=== PATIENT | male | born 1995 | race Caucasian/White ===

== ENCOUNTER 2018-03-14 15:37 | Observation (INO) ==
[2018-03-14] MEDS: NS 1000 ML 1,000 ML IV SCH (16:43)
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
[2018-03-14 17:07] LABS: BASOPHILS # (AUTO) 0.1 X10^3/uL (0.0-0.1); BASOPHILS % (AUTO) 0.9 % (0.2-1.0); EOSINOPHILS # (AUTO) 0.2 x10^3/uL (0.0-0.2); EOSINOPHILS % (AUTO) 2.3 % (0.9-2.9); HEMATOCRIT 40.5 % (42.0-54.0); HEMOGLOBIN 13.4 g/dL (13.5-18.0); LYMPHOCYTES % (AUTO) 37.3 % (21.0-51.0); MEAN CORPUSCULAR HEMOGLOBIN 28.4 pg (27.0-34.0); MEAN CORPUSCULAR HGB CONC 32.9 g/dL (33.0-35.0); MEAN CORPUSCULAR VOLUME 86.3 fL (80.0-100.0); MEAN PLATELET VOLUME 7.3 fL (7.4-11.0); MONOCYTES # (AUTO) 0.5 x10^3/uL (0.3-0.8); MONOCYTES % (AUTO) 6.6 % (0.0-13.0); NEUTROPHILS # (AUTO) 4.3 x10^3/uL (2.2-4.8); NEUTROPHILS % (AUTO) 52.9 % (42.0-75.0); PLATELET COUNT 349 X10^3/uL (150.0-450.0); RED CELL DISTRIBUTION WIDTH 12.9 % (11.6-16.5)
[2018-03-14 17:19] LABS: ALANINE AMINOTRANSFERASE 17 Units/L (12-78); ALBUMIN 3.3 g/dL (3.4-5.0); ALKALINE PHOSPHATASE 96 Units/L (46-116); ASPARTATE AMINO TRANSFERASE 19 Units/L (15-37); BLOOD UREA NITROGEN 9 mg/dL (7-18); CALCIUM 8.6 mg/dL (8.5-10.1); CARBON DIOXIDE 28.5 mmol/L (21-32); CHLORIDE 105 mmol/L (98-107); COR CA(FOR HYPOALB) 9.2 mg/dL (8.5-10.1); COR NA(FOR HYPERGLY) 142 mmol/L (136-145); CREATININE 0.78 mg/dL (0.70-1.30); SODIUM 142 mmol/L (136-145); TOTAL PROTEIN 7.7 g/dL (6.4-8.2); eGFR NON BLACK RACES > 60 (>60)
[2018-03-14 17:28] VITALS: BMI 46.5
[2018-03-14] MEDS ORDERED: PERCOCET TAB 5/325 MG PO PRN (20:16)
[2018-03-14] MEDS ORDERED: NS IV SCH (22:00)
[2018-03-14] MEDS ORDERED: PHARMACY CONSULT - VANCOMYCIN XX SCH (22:00)
[2018-03-14] MEDS ORDERED: VANCOMYCIN HCL IV SCH (22:00)
[2018-03-14] MEDS: ZOSYN VIAL 3.375 GRAMS IV SCH (22:09)
[2018-03-15] MEDS: NS 1000 ML 1,000 ML IV SCH ×2 (05:55→21:51)
[2018-03-15] MEDS: ZOSYN VIAL 3.375 GRAMS IV SCH ×3 (05:56→23:45)
[2018-03-15 06:50] LABS: BASOPHILS # (AUTO) 0.1 X10^3/uL (0.0-0.1); BASOPHILS % (AUTO) 0.9 % (0.2-1.0); EOSINOPHILS # (AUTO) 0.3 x10^3/uL (0.0-0.2); EOSINOPHILS % (AUTO) 3.7 % (0.9-2.9); HEMATOCRIT 37.2 % (42.0-54.0); HEMOGLOBIN 12.7 g/dL (13.5-18.0); LYMPHOCYTES # (AUTO) 3.3 X10^3/uL (1.3-2.9); LYMPHOCYTES % (AUTO) 44.6 % (21.0-51.0); MEAN CORPUSCULAR HGB CONC 34.1 g/dL (33.0-35.0); MEAN CORPUSCULAR VOLUME 85.1 fL (80.0-100.0); MEAN PLATELET VOLUME 7.2 fL (7.4-11.0); MONOCYTES # (AUTO) 0.6 x10^3/uL (0.3-0.8); MONOCYTES % (AUTO) 8.5 % (0.0-13.0); NEUTROPHILS # (AUTO) 3.2 x10^3/uL (2.2-4.8); NEUTROPHILS % (AUTO) 42.3 % (42.0-75.0); PLATELET COUNT 308 X10^3/uL (150.0-450.0); RED BLOOD COUNT 4.37 X10^6/uL (4.7-6.0); RED CELL DISTRIBUTION WIDTH 12.8 % (11.6-16.5); WHITE BLOOD COUNT 7.5 X10^3/uL (3.6-10.0)
[2018-03-15 07:17] LABS: ALANINE AMINOTRANSFERASE 19 Units/L (12-78); ALKALINE PHOSPHATASE 87 Units/L (46-116); ASPARTATE AMINO TRANSFERASE 18 Units/L (15-37); BLOOD UREA NITROGEN 12 mg/dL (7-18); CALCIUM 8.4 mg/dL (8.5-10.1); CARBON DIOXIDE 25.2 mmol/L (21-32); CHLORIDE 106 mmol/L (98-107); COR CA(FOR HYPOALB) 9.2 mg/dL (8.5-10.1); CREATININE 0.74 mg/dL (0.70-1.30); SODIUM 140 mmol/L (136-145); eGFR NON BLACK RACES > 60 (>60)
[2018-03-15] MEDS: VANCOMYCIN HCL IV SCH ×2 (09:55→21:50)
[2018-03-15] MEDS: NS IV SCH ×2 (09:55→21:50)
--- NOTE | 2018-03-15 10:22 | DR.UPDATE ---
H&P Update History and Physical Update: WAS SEEN IN THE OFFICE BY URSZULA MARQUEZ NP YESTERDAY. A H&P WAS COMPLETED PRIOR TO ADMISSION. PATIENT HAS BEEN SEEN AND EXAMINED WITH NO CHANGES NOTED TO H&P. Changes noted: NO Yes with the following:
[2018-03-15] MEDS: GENTAMICIN TOPICAL OINT TOP SCH ×3 (10:27→21:50)
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
[2018-03-15] MEDS ORDERED: NS 100 ML IV + SPIKE MINIBAG* 100 ML IV ONE (14:11)
[2018-03-16 06:23] LABS: BASOPHILS # (AUTO) 0.1 X10^3/uL (0.0-0.1); BASOPHILS % (AUTO) 0.7 % (0.2-1.0); EOSINOPHILS # (AUTO) 0.2 x10^3/uL (0.0-0.2); EOSINOPHILS % (AUTO) 3.3 % (0.9-2.9); HEMATOCRIT 38.6 % (42.0-54.0); HEMOGLOBIN 12.9 g/dL (13.5-18.0); LYMPHOCYTES # (AUTO) 2.2 X10^3/uL (1.3-2.9); LYMPHOCYTES % (AUTO) 28.3 % (21.0-51.0); MEAN CORPUSCULAR HEMOGLOBIN 28.6 pg (27.0-34.0); MEAN CORPUSCULAR HGB CONC 33.4 g/dL (33.0-35.0); MEAN CORPUSCULAR VOLUME 85.8 fL (80.0-100.0); MONOCYTES # (AUTO) 0.8 x10^3/uL (0.3-0.8); MONOCYTES % (AUTO) 10.6 % (0.0-13.0); NEUTROPHILS # (AUTO) 4.3 x10^3/uL (2.2-4.8); NEUTROPHILS % (AUTO) 57.1 % (42.0-75.0); PLATELET COUNT 317 X10^3/uL (150.0-450.0); RED CELL DISTRIBUTION WIDTH 13.2 % (11.6-16.5); WHITE BLOOD COUNT 7.6 X10^3/uL (3.6-10.0)
[2018-03-16 06:35] LABS: ALANINE AMINOTRANSFERASE 17 Units/L (12-78); ALBUMIN 3.1 g/dL (3.4-5.0); ALKALINE PHOSPHATASE 89 Units/L (46-116); ASPARTATE AMINO TRANSFERASE 25 Units/L (15-37); BLOOD UREA NITROGEN 13 mg/dL (7-18); CALCIUM 8.3 mg/dL (8.5-10.1); CARBON DIOXIDE 26.2 mmol/L (21-32); CHLORIDE 106 mmol/L (98-107); CREATININE 0.85 mg/dL (0.70-1.30); SODIUM 139 mmol/L (136-145); TOTAL PROTEIN 7.1 g/dL (6.4-8.2); eGFR NON BLACK RACES > 60 (>60)
[2018-03-16] MEDS: ZOSYN VIAL 3.375 GRAMS IV SCH (06:45)
[2018-03-16] MEDS: VANCOMYCIN HCL IV SCH (08:32)
[2018-03-16] MEDS: GENTAMICIN TOPICAL OINT TOP SCH (08:32)
[2018-03-16] MEDS: NS IV SCH (08:32)
[2018-03-16 10:07] VITALS: BP 133/61
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
== END 2018-03-16 12:00 | disposition home or self-care (01) ==
LOC: OBS
PROVIDERS: ADMIT Internal Medicine; ATTEND Internal Medicine
DX: R52 Pain, unspecified; L03.115 Cellulitis of right lower limb; M79.671 Pain in right foot; R60.0 Localized edema
CPT/HCPCS: 36415; 73630; 80053; 85025; 87040; 87070; 87075; 87205; 97161; A4216; A4222; G0378; J2543; J3370; J7030; J7040; J7050

== ENCOUNTER 2023-05-31 08:18 | Observation (INO) ==
[~2023-05-31 08:18] MED LIST: NS IRRIGATION* 1,000 ML ONE
[2023-05-31 08:33] VITALS: BMI 48.1
--- NOTE | 2023-05-31 09:11 | DR.GENAD ---
HPI Time Seen Time Seen by Provider: 05/31/23 09:10 PCP Primary Care Physician: LISA Complaint/Symptoms Chief Complaint:: Seen in ED day secondary Gallstones, received RX but not filled because he already had them and has not gotten any better. 2 days of N&V, pain LUQ and between shoulder blades. Patient states he had Oxycodone from hsi mother x 2 yesterday Self Treatment fo Chief Complaint: Zofran, Mothers Oxycodone x 2 yesterday COVID-19 Coronavirus risk:travel/contact w/high risk person: No Has patient experienced Coronavirus symptoms: No Source History Provided: Patient Mode of Arrival Mode of Arrival: Ambulatory Timing Onset of Chief Complaint: 05/22/23 PMH PMH Past Medical History: Yes Past Medical History: Anxiety, GERD and Headaches Past Surgical History: Yes Surgical History: Tonsillectomy Family History History of Family Medical Conditions: Yes Family Medical History: Hypertension Social History Does any household member use tobacco: No Alcohol Use: None Do you use any 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) Lives With: Mom Lives Where: Home Travel Risk Coronavirus risk:travel/contact w/high risk person: No Has patient experienced Coronavirus symptoms: No Infectious screening In the last 2 months have you had wt loss of >10#?: NO Have you had fever, night sweats or hemotysis?: No Have you traveled outside the country in the last 6 months?: No Isolation: Standard PE Vital Signs Vitals: Vital Signs Temperature 98.3 F Pulse Rate 80 Respiratory Rate 20 Respiratory Rate 16 Blood Pressure 150/70 O2 Sat by Pulse Oximetry 95 ROR Labs Reviewed 05/31/23 09:35 05/31/23 09:35 Laboratory: WBC 10.0 X10^3/uL (3.6-10.0) 05/31/23 09:35 RBC 5.11 X10^6/uL (4.7-6.0) 05/31/23 09:35 Hgb 14.5 g/dL (13.5-18.0) 05/31/23 09:35 Hct 42.9 % (42.0-54.0) 05/31/23 09:35 MCV 83.9 fL (80.0-100.0) 05/31/23 09:35 MCH 28.4 pg (27.0-34.0) 05/31/23 09:35 MCHC 33.9 g/dL (33.0-35.0) 05/31/23 09:35 RDW 14.2 % (11.6-16.5) 05/31/23 09:35 Plt Count 270 X10^3/uL (150.0-450.0) 05/31/23 09:35 MPV 7.5 fL (7.4-11.0) 05/31/23 09:35 Neut % (Auto) 69.3 % (42.0-75.0) 05/31/23 09:35 Lymph % (Auto) 19.7 % (21.0-51.0) L 05/31/23 09:35 [place] % (Auto) 10.3 % (0.0-13.0) 05/31/23 09:35 Eos % (Auto) 0.3 % (0.9-2.9) L 05/31/23 09:35 Baso % (Auto) 0.4 % (0.2-1.0) 05/31/23 09:35 Neut # (Auto) 6.9 x10^3/uL (2.2-4.8) H 05/31/23 09:35 Lymph # (Auto) 2.0 X10^3/uL (1.3-2.9) 05/31/23 09:35 [place] # (Auto) 1.0 x10^3/uL (0.3-0.8) H 05/31/23 09:35 Eos # (Auto) 0.0 x10^3/uL (0.0-0.2) 05/31/23 09:35 Baso # (Auto) 0.0 X10^3/uL (0.0-0.1) 05/31/23 09:35 Absolute Nucleated RBC 0.0 /100WBC 05/31/23 09:35 Opioid Opioid Risk Tool Age (Renaldo box if 16-45): Yes History of Preadolescent Sexual Abuse: No Total: 1 Total Score Risk Category: Low Risk Copyright: Darrell ABRAMS predicting aberrant behaviors Discharge Plan Discharge Plan Patient Disposition: 09 ADMITTED INPATIENT Condition: Stable Prescriptions: No Action tramadol 50 mg tablet 50 mg PO Q8H MDD 3 PRNQty: 10 0RF ondansetron 4 mg tablet,disintegrating 4 mg PO Q8H PRNQty: 20 0RF Health Concerns: Post Hospitalization: new medications and changes needed to prevent readmission or further decline. Pt educated and given instructions on all concerns. Plan of Treatment: Continue with present treatment and follow up plan. Pt is to keep follow up appointment as instructed and take medications as ordered. Orders to Discharge Patient Discharge Orders: Transfer (Routine); Ordered 05/31/23 Ordered By: MARISA MILLAN Follow ups/Referrals Follow ups/Referrals: ROGERIO HEARD [Primary Care Provider] - 3 days
[2023-05-31 09:51] LABS: BASOPHILS % (AUTO) 0.4 % (0.2-1.0); EOSINOPHILS % (AUTO) 0.3 % (0.9-2.9); HEMATOCRIT 42.9 % (42.0-54.0); HEMOGLOBIN 14.5 g/dL (13.5-18.0); LYMPHOCYTES % (AUTO) 19.7 % (21.0-51.0); MEAN CORPUSCULAR HEMOGLOBIN 28.4 pg (27.0-34.0); MEAN CORPUSCULAR HGB CONC 33.9 g/dL (33.0-35.0); MEAN CORPUSCULAR VOLUME 83.9 fL (80.0-100.0); MEAN PLATELET VOLUME 7.5 fL (7.4-11.0); MONOCYTES % (AUTO) 10.3 % (0.0-13.0); NEUTROPHILS # (AUTO) 6.9 x10^3/uL (2.2-4.8); NEUTROPHILS % (AUTO) 69.3 % (42.0-75.0); PLATELET COUNT 270 X10^3/uL (150.0-450.0); RED BLOOD COUNT 5.11 X10^6/uL (4.7-6.0); RED CELL DISTRIBUTION WIDTH 14.2 % (11.6-16.5)
--- NOTE | 2023-05-31 10:21 | US ---
HISTORYReason For StudySTUDYGALL BLADDERCOMPARISONNoneTECHNIQUEMultiple sterling scale and color flow Doppler images of the right upper quadrant were obtained.FINDINGSThe liver is normal in size but demonstrates increased echotexture most compatible fatty infiltration. No focal intraparenchymal mass or intrahepatic biliary ductal dilatation can be observed. The gallbladder demonstrates multiple shadowing stones. The common bile duct is unremarkable measuring 3 mm in width. No pericholecystic fluid or gallbladder wall thickening can be observed .The right kidney appears normal in size without focal parenchymal mass or nephrolithiasis. The right kidney measurers 12 cm in length. No hydronephrosis or perirenal fluid can be observed. Pancreas is largely obscured by overlying bowel gas.IMPRESSIONCholelithiasis.Probable fatty liver.Electronically signed by: MERT CERVANTES (May 31, 2023 10:21:06)
[2023-05-31] MEDS ORDERED: DEMEROL INJ IVP ONE (10:44)
[2023-05-31] MEDS ORDERED: ZOFRAN INJ 4 MG VIAL IVP ONE (10:44)
[2023-05-31] MEDS ORDERED: ZOFRAN INJ 4 MG VIAL ONE (10:45)
[2023-05-31] MEDS ORDERED: DEMEROL INJ ONE (10:45)
[2023-05-31] MEDS ORDERED: ZOSYN VIAL 3.375 GRAMS IV ONE (10:59)
[2023-05-31] MEDS ORDERED: NS 100 ML IV 100 ML ONE (11:00)
[2023-05-31] MEDS ORDERED: D5 1/2 NS 1,000 ML 1,000 ML IV ONE (11:00)
[2023-05-31] MEDS ORDERED: D5 1/2 NS 1,000 ML 1,000 ML IV STA (11:08)
[2023-05-31] MEDS ORDERED: ZOSYN VIAL 3.375 GRAMS 3.375 G in NS 100 ML IV 100 ML IV STA (11:08)
[2023-05-31 11:13] LABS: ALANINE AMINOTRANSFERASE 15 Units/L (12-78); ALBUMIN 4.1 g/dL (3.4-5.0); ALKALINE PHOSPHATASE 103 Units/L (46-116); ASPARTATE AMINO TRANSFERASE 19 Units/L (15-37); BLOOD UREA NITROGEN 8 mg/dL (7-18); CALCIUM 8.4 mg/dL (8.5-10.1); CARBON DIOXIDE 27.7 mmol/L (21-32); CHLORIDE 102 mmol/L (98-107); GLUCOSE 101 mg/dL (65-99); POTASSIUM 3.7 mmol/L (3.5-5.1); SODIUM 141 mmol/L (136-145); TOTAL PROTEIN 8.5 g/dL (6.4-8.2); eGFR NON BLACK RACES > 60 (>60)
--- NOTE | 2023-05-31 11:17 | EKG ---
Test Reason : SURGICAL CLEARANCE Blood Pressure : */* mmHG Vent. Rate : 67 BPM Atrial Rate : 67 BPM P-R Int : 146 ms QRS Dur : 94 ms QT Int : 414 ms P-R-T Axes : 29 38 24 degrees QTc Int : 437 ms Normal sinus rhythm with sinus arrhythmia Normal ECG No previous ECGs available Confirmed by Facundo Oswald ([id number]) on 06/01/2023 8:04:11 AM Referred By: Confirmed By: Facundo Oswald
[2023-05-31] MEDS ORDERED: KETAMINE 50 MG/5 ML-NACL SYRNG ONE (12:00)
[2023-05-31] MEDS ORDERED: ZOSYN VIAL 2.25 GRAMS 2.25 G in NS 100 ML IV 100 ML IV SCH (12:00)
[2023-05-31] MEDS ORDERED: ZOFRAN INJ 4 MG VIAL IVP PRN ×3 (12:00→16:01)
[2023-05-31] MEDS ORDERED: XYLOCAINE 2 % (PLAIN) ONE (12:00)
[2023-05-31] MEDS ORDERED: ULTANE GAS IN ONE (12:00)
[2023-05-31 12:02] LABS: AMYLASE 32 Units/L (25-115); LIPASE 68 Units/L (73-393)
[2023-05-31] MEDS ORDERED: BENADRYL INJ 50 MG VIAL IVP PRN (15:48)
[2023-05-31] MEDS ORDERED: DILAUDID INJ IVP PRN (15:48)
[2023-05-31] MEDS ORDERED: BARHEMSYS INJ IVP PRN (15:48)
[2023-05-31] MEDS: D5 1/2 NS 1,000 ML 1,000 ML IV SCH (17:12)
[2023-05-31] MEDS: ZOSYN VIAL 3.375 GRAMS 3.375 G in NS 100 ML IV 100 ML IV SCH ×2 (17:13→21:43)
[2023-05-31] MEDS: DILAUDID INJ IVP PRN (20:55)
[2023-06-01] MEDS: DILAUDID INJ IVP PRN ×2 (02:26→09:35)
[2023-06-01 04:08] VITALS: RESP 20
[2023-06-01] MEDS: D5 1/2 NS 1,000 ML 1,000 ML IV SCH ×2 (05:15→09:46)
[2023-06-01] MEDS: ZOSYN VIAL 3.375 GRAMS 3.375 G in NS 100 ML IV 100 ML IV SCH (05:15)
[2023-06-01 06:36] LABS: BASOPHILS % (AUTO) 0.1 % (0.2-1.0); HEMATOCRIT 38.1 % (42.0-54.0); HEMOGLOBIN 13.1 g/dL (13.5-18.0); LYMPHOCYTES # (AUTO) 2.1 X10^3/uL (1.3-2.9); LYMPHOCYTES % (AUTO) 21.9 % (21.0-51.0); MEAN CORPUSCULAR HEMOGLOBIN 28.9 pg (27.0-34.0); MEAN CORPUSCULAR HGB CONC 34.5 g/dL (33.0-35.0); MEAN CORPUSCULAR VOLUME 83.8 fL (80.0-100.0); MONOCYTES # (AUTO) 1.2 x10^3/uL (0.3-0.8); MONOCYTES % (AUTO) 12.3 % (0.0-13.0); NEUTROPHILS # (AUTO) 6.2 x10^3/uL (2.2-4.8); NEUTROPHILS % (AUTO) 65.7 % (42.0-75.0); PLATELET COUNT 248 X10^3/uL (150.0-450.0); RED BLOOD COUNT 4.54 X10^6/uL (4.7-6.0); RED CELL DISTRIBUTION WIDTH 14.2 % (11.6-16.5); WHITE BLOOD COUNT 9.5 X10^3/uL (3.6-10.0)
[2023-06-01 06:51] LABS: ALANINE AMINOTRANSFERASE 67 Units/L (12-78); ALBUMIN 3.4 g/dL (3.4-5.0); ALKALINE PHOSPHATASE 104 Units/L (46-116); ASPARTATE AMINO TRANSFERASE 111 Units/L (15-37); BLOOD UREA NITROGEN 7 mg/dL (7-18); CALCIUM 8.3 mg/dL (8.5-10.1); CARBON DIOXIDE 31.6 mmol/L (21-32); CHLORIDE 101 mmol/L (98-107); CREATININE 0.84 mg/dL (0.70-1.30); GLUCOSE 110 mg/dL (65-99); POTASSIUM 4.2 mmol/L (3.5-5.1); SODIUM 139 mmol/L (136-145); TOTAL PROTEIN 7.6 g/dL (6.4-8.2); eGFR NON BLACK RACES > 60 (>60)
[2023-06-01 10:10] VITALS: BP 113/56; PULSE 79; TEMP 98.3; O2SAT 97
== END 2023-06-01 13:15 | disposition home or self-care (01) ==
LOC: ER 08:18 → MED/SURG 08:18 → ER 11:27
PROVIDERS: ADMIT Surgery; ATTEND Surgery
DX: F41.8 Other specified anxiety disorders; R10.84 Generalized abdominal pain; K21.9 Gastro-esophageal reflux disease without esophagitis; K80.70 Calculus of gallbladder and bile duct without cholecystitis without obstruction; R10.13 Epigastric pain; Z68.42 Body mass index [BMI] 45.0-49.9, adult; K82.1 Hydrops of gallbladder; E66.8 Other obesity; R74.01 Elevation of levels of liver transaminase levels; K66.0 Peritoneal adhesions (postprocedural) (postinfection)